=== PATIENT | female | born 1950 | race Caucasian/White ===

== ENCOUNTER 2016-08-18 15:53 | Emergency (ER) | payer BC ==
[~2016-08-18] VITALS: Ht 152.4 cm; Wt 93.5 kg
[2016-08-18] MEDS ORDERED: KETOROLAC 60 MG/2 ML (TORADOL) VIAL IM ONE (16:30)
[2016-08-18 17:25] VITALS: BP 153/80
== END 2016-08-18 17:25 | disposition home or self-care (01) ==
LOC: ED 15:58
DX: S43.51XA Sprain of right acromioclavicular joint, initial encounter (principal); X50.9XXA Other and unspecified overexertion or strenuous movements or postures, initial encounter; W19.XXXA Unspecified fall, initial encounter; Y93.89 Activity, other specified; Y92.009 Unspecified place in unspecified non-institutional (private) residence as the place of occurrence of the external cause
CPT/HCPCS: 73030; 96372; 99283; J1885